=== PATIENT | female | born 1980 ===

== ENCOUNTER 2020-03-09 12:38 | Outpatient (CLI) | payer OTHER, SELFPAY ==
--- NOTE | ~2020-03-09 | US_ITS ---
EXAMINATION: US pelvic complete w TV DATE: 03/09/2020 13:11 INDICATION: Menorrhagia Comparison:No prior studies for comparison. TECHNIQUE: Multiple transabdominal and endovaginal sonographic images of the pelvis performed. FINDINGS: The uterus measures 12.6 x 7.6 x 8.8 cm. There are multiple uterine fibroids, largest measu ring 5.4 x 4.1 x 3.6 cm. The endometrial complex measures 7 mm. The right ovary measures 3.6 x 2.8 x 2.5 cm and the left ovary measures 2.7 x 1.6 x 2.3 cm. There ar e small follicles in each ovary. There is no free fluid in the pelvis. There are no abnormal masses seen on either side. IMPRESSION: 1. Enlarged fibroid uterus. Reviewed, dictated and finalized at location A. IMPRESSION: 1. Enlarged fibroid uterus.
--- NOTE | ~2020-03-09 | MMUS_ITS ---
EXAMINATION: MM diagnostic feroz BI w so, US breast LT limited HISTORY: Palpable left breast abnormality TECHNIQUE: Additional 3-D tomosynthesis images of the breasts were performed and synthetic 2-D images were generated. CAD analysis was submitted and interpreted. High resolution left breast ultrasound w as performed. COMPARISON: None BREAST PARENCHYMAL COMPOSITION: The breasts are heterogenously dense, which may obscure small masses. FINDINGS: MAMMOGRAPHIC FINDINGS: There is no mammographic evidence for malignancy in the right breast. There are multiple masses in th e upper outer quadrant of the left breast corresponding to the area of palpable concern. There are mu ltiple benign-appearing calcifications in both breasts, many of which layer on the left medial latera l view, consistent with milk of calcium. ULTRASOUND: Left breast ultrasound: There are multiple cysts in the upper outer quadrant of the left breast corresponding to the area of palpable concern, largest at 1:00, 10 cm from the nipple measuring 1.6 x 1.5 x 1.3 cm. No suspicious masses to suggest malignancy. IMPRESSION: 1. Multiple left breast cysts corresponding to the area of palpable concern. No evidence for malignan cy in either breast. 2. Routine yearly screening mammogram and regular clinical breast examination are recommended. BI-RADS Category 2: Benign finding(s). Reviewed, dictated and finalized at location A. IMPRESSION: 1. Multiple left breast cysts corresponding to the area of palpable concern. No evidence for malignancy in either breast. 2. Routine yearly screening mammogram and regular clinical breast examination a re recommended. BI-RADS Category 2: Benign finding(s).
== END 2020-03-09 12:39 ==
PROVIDERS: Visit Provider Obstetrics & Gynecology
DX: N92.0 Excessive and frequent menstruation with regular cycle (principal); R92.8 Other abnormal and inconclusive findings on diagnostic imaging of breast; N63.0 Unspecified lump in unspecified breast
CPT/HCPCS: 76642; 76830; 76856; 77062; 77066; G0279